=== PATIENT | female | born 1965 | race Asian ===

== ENCOUNTER 2025-05-20 15:30 | Emergency (ER) | payer OTHER ==
[~2025-05-20] VITALS: Ht 160 cm; Wt 95.3 kg
[2025-05-20 15:37] VITALS: BP 148/74
[2025-05-20] MEDS ORDERED: ALBU18HF2 INH (18:51)
[2025-05-20] MEDS ORDERED: HYDR120S7 PO (18:51)
[2025-05-20] MEDS ORDERED: GUAI5SYR4 PO (18:51)
[2025-05-20 19:05] VITALS: BP 137/70; O2SAT 97
== END 2025-05-20 19:06 | disposition home or self-care (01) ==
LOC: ER 15:30
DX: J20.8 Acute bronchitis due to other specified organisms (principal); B97.89 Other viral agents as the cause of diseases classified elsewhere; E11.9 Type 2 diabetes mellitus without complications; Z88.1 Allergy status to other antibiotic agents; Z90.49 Acquired absence of other specified parts of digestive tract; Z90.710 Acquired absence of both cervix and uterus
CPT/HCPCS: A4606; A4663